=== PATIENT | male | born 1950 | race Caucasian/White ===

== ENCOUNTER 2020-04-05 17:48 | Inpatient (IN) | payer OTHER ==
[2020-04-05 20:01] VITALS: BMI 30.7
--- NOTE | 2020-04-05 20:29 | HP ---
CIWA Score Nausea/Vomitin-No Nausea/No Vomiting Muscle Tremors: 1-None Visible, but [place] Anxiety: 4-Mod. Anxious/Guarded Agitation: 4-Moderately Restless Paroxysmal Sweats: 4-Forehead w/Sweat Beads Orientation: 1-Uncertain about Date Tacttile Disturbances: 0-None Auditory Disturbances: 0-None Visual Disturbances: 2-Mild Sensitivity (to light) Headache: 0-None Present CIWA-Ar Total Score: 16 - Admission Criteria OASAS Guidelines: Admission for Medically Managed Detox: Requires at least one of the followin. CIWA greater than 12 2. Seizures within the past 24 hours 3. Delirium tremens within the past 24 hours 4. Hallucinations within the past 24 hours 5. Acute intervention needed for co occurring medical disorder 6. Acute intervention needed for co occurring psychiatric disorder 7. Severe withdrawal that cannot be handled at a lower level of care (continued vomiting, continued diarrhea, abnormal vital signs) requiring intravenous medication and/or fluids 8. Admission ROS [facility] Chief Complaint: c/o onset of withdrawal sx's. seeking detox Allergies/Adverse Reactions: Allergies Allergy/AdvReac Type Severity Reaction Status Date / Time No Known Allergies Allergy Verified 04/05/20 20:24 History of Present Illness: 69 y.o.MALE WITH HX/O ALCOHOLISM AND OPIOID DEPENDENCE HERE FOR DETOX. CLIENT IS SELF REFERRED. KNOWN TO [facility] MANY YEARS AGO. HE IS ON MMTP AT [facility] W/ REPORTED DOSE OF 60 MG DAILY. REPORTS LDM TODAY. HE REPORTS DAILY ALCOHOL INTAKE. LAST INTAKE APPROX 9 AM. PRESENTS WITH C/O OF WITHDRAWAL SX'S. DENIES RADIOLOGY ORDERLY DRINKING. DENIES HX/O BLACK OUTS AND SEIZURES. REPORTS LONGEST CLEAN TIME 7 YEARS RELAPSING 2000. DENIES ANY CLEAN TIME IN THE PAST 12 MONTHS HE ALSO REPORTS HEROIN USE OF 2 BAGS DAILY. RECENTLY HAD METHADONE DOSE INCREASED AT [facility]. LIVES ALONE, UNEMPLOYED, DENIES LEGALS Exam Limitations: No Limitations - Ebola screening Have you traveled outside of the country in the last 21 days: No Have you had contact with anyone from an Ebola affected area: No Have you been sick,other than usual withdrawal symptoms: No Do you have a fever: No - Review of Systems Constitutional: Night Sweats, Changes in sleep EENT: reports: Dental Problems (MISSING TEETH) Respiratory: reports: Other (HX/O +PPD) Cardiac: reports: No Symptoms Reported GI: reports: Constipated : reports: No Symptoms Reported Musculoskeletal: reports: Back Pain, Joint Pain (R KNEE) Integumentary: reports: No Symptoms Reported Neuro: reports: Tremors Endocrine: reports: No Symptoms Reported Hematology: reports: Easy Bruising Psychiatric: reports: Orientated x3, Anxious, other (STRESS D/O) Other Systems: Reviewed and Negative Patient History - Patient Medical History Hx Anemia: No Hx Asthma: No Hx Chronic Obstructive Pulmonary Disease (COPD): No Hx Cancer: No Hx Cardiac Disorders: No Hx Congestive Heart Failure: No Hx Hypertension: No Hx Hypercholesterolemia: Yes Hx Pacemaker: No HX Cerebrovascular Accident: No Hx Seizures: No Hx Dementia: No Hx Diabetes: No Hx Gastrointestinal Disorders: No Hx Liver Disease: No Hx Genitourinary Disorders: No Hx Sexually Transmitted Disorders: No Hx Renal Disease (ESRD): No Hx Thyroid Disease: No Hx Human Immunodeficiency Virus (HIV): Yes (ON MEDS) Hx Hepatitis C: No Hx Depression: Yes Hx Suicide Attempt: No Hx Bipolar Disorder: No Hx Schizophrenia: No Other Medical History: ANXIETY, STRESS D/O HX/O +PPD TX'ED - Patient Surgical History Past Surgical History: No - PPD History Previous Implant?: Yes Documented Results: Positive w/o proof Implanted On Prior [facility] Admission?: No PPD to be Administered?: No - Smoking Cessation Smoking history: Current every day smoker Have you smoked in the past 12 months: Yes Aproximately how many cigarettes per day: 10 Cigars Per Day: 0 Hx Chewing Tobacco Use: No Initiated information on smoking cessation: Yes 'Breaking Loose' booklet given: 04/05/20 - Substance & Tx. History Hx Alcohol Use: Yes Hx Substance Use: Yes Substance Use Type: Alcohol, Heroin, Prescribed (MTD) Hx Substance Use Treatment: Yes ([facility]) - Substances abused Alcohol Other (specify): LIQUOR/ VODKA Substance route: Oral Frequency: Daily Amount used: 1/2 PINT Age of first use: 66 Date of last use: 04/05/20 Admission Physical Exam BHS - Vital Signs Vital Signs: Vital Signs - 24 hr 04/05/20 19:59 Temperature 97.9 F Pulse Rate 61 Respiratory 18 Rate Blood Pressure 133/75 - Physical General Appearance: Yes: Mild Distress, Anxious HEENTM: Yes: EOMI, Normocephalic, Normal Voice, CINTIA, Pharynx Normal, Other (EDENTULOUS) Respiratory: Yes: Chest Non-Tender, Lungs Clear, Normal Breath Sounds, No Respiratory Distress, No Accessory Muscle Use Neck: Yes: No masses,lesions,Nodules, Supple, Trachea in good position Breast: Yes: Breasts Symetrical Cardiology: Yes: Regular Rhythm, Regular Rate, S1, S2 Abdominal: Yes: Normal Bowel Sounds, Non Tender, Soft, Protuberent Genitourinary: Yes: Within Normal Limits Back: Yes: Normal Inspection Musculoskeletal: Yes: full range of Motion, Gait Steady Extremities: Yes: Normal Capillary Refill, Normal Range of Motion, Non-Tender Neurological: Yes: Alert, Motor Strength 5/5, Disoriented (TO DATE), Other - Diagnostic (1) Alcohol dependence with withdrawal, uncomplicated Current Visit: Yes Status: Acute (2) Methadone maintenance therapy patient Current Visit: Yes Status: Chronic (3) History of positive PPD Current Visit: Yes Status: Chronic (4) Cannabis dependence, uncomplicated Current Visit: Yes Status: Acute (5) HLD (hyperlipidemia) Current Visit: Yes Status: Chronic Qualifiers: Hyperlipidemia type: unspecified Qualified Code(s): E78.5 - Hyperlipidemia, unspecified (6) Psychiatric disorder Current Visit: Yes Status: Chronic (7) HIV (human immunodeficiency virus infection) Current Visit: Yes Status: Chronic Qualifiers: HIV symptom status: unspecified Qualified Code(s): B20 - Human immunodeficiency virus [HIV] disease Cleared for Admission S - Detox or Rehab [facility] Level of Care: Medically Managed Detox Regimen/Protocol: Ativan Claeared for Rehab Admission: No Breathalyzer - Breathalyzer Breathalyzer: 0 Urine Drug Screen - Test Device Lot number: [id number] Expiration date: 10/14/21 - Control Is test valid?: Yes - Results Drug screen NEGATIVE: No Urine drug screen results: THC-Marijuana, FEN-Fentanyl, MOP-Opiates, MTD- Methadone Inpatient Rehab Admission - Rehab Decision to Admit Inpatient rehab admission?: No
[2020-04-05] MEDS ORDERED: hydrOXYzine PAMOATE 25 MG CAPSULE (FP) PO PRN (20:40)
[2020-04-05] MEDS ORDERED: guaiFENesin 200 MG/10 ML 10 ML UNIT-DOSE CUPS PO PRN (20:40)
[2020-04-05] MEDS ORDERED: METHOCARBAMOL 500 MG TABLET PO PRN (20:40)
[2020-04-05] MEDS ORDERED: IBUPROFEN 400 MG TABLET (FP) PO PRN (20:40)
[2020-04-05] MEDS ORDERED: MAGNESIUM CITRATE 300 ML BOTTLE PO PRN (20:40)
[2020-04-05] MEDS ORDERED: MAG HYDROX/AL HYDROX/SIMETH 30 ML UNIT-DOSE CUP PO PRN (20:40)
[2020-04-05] MEDS ORDERED: MAGNESIUM HYDROX 2400MG/30ML ORAL SUSPENSION 30 ML CUP PO PRN (20:40)
[2020-04-05] MEDS ORDERED: NICOTINE POLACRILEX 2 MG GUM BUC PRN (20:40)
[2020-04-05] MEDS ORDERED: ONDANSETRON *ODT* 4 MG TABLET SL PRN (20:40)
[2020-04-05] MEDS ORDERED: BISMUTH SUBSALICYLATE 524 MG/30 ML UD PO PRN (20:40)
[2020-04-05] MEDS ORDERED: ACETAMINOPHEN 325 MG TABLET (FP) PO PRN ×2 (20:40)
[2020-04-05] MEDS ORDERED: P-EPHED 60MG/TRIPROLIDI 2.5MG TABLET PO PRN (20:40)
[2020-04-05] MEDS ORDERED: LORazepam 1 MG TABLET PO PRN (20:40)
[2020-04-05] MEDS ORDERED: DICYCLOMINE HCL 10 MG CAPSULE PO PRN (20:40)
[2020-04-05] MEDS ORDERED: MENTHOL/PHENOL 1 EACH UD MM PRN (20:40)
[2020-04-05] MEDS: THIAMINE HCL 100 MG TABLET (FP) PO SCH (22:10)
[2020-04-05] MEDS: LORazepam 2 MG TABLET PO SCH (22:10)
[2020-04-05] MEDS: MELATONIN 5 MG TABLETS PO SCH (22:11)
[2020-04-06] MEDS: LORazepam 2 MG TABLET PO SCH ×4 (05:59→22:38)
--- NOTE | 2020-04-06 10:14 | EKG ---
Test Reason : Blood Pressure : / mmHG Vent. Rate : 051 BPM Atrial Rate : 051 BPM P-R Int : 150 ms QRS Dur : 090 ms QT Int : 476 ms P-R-T Axes : 031 062 066 degrees QTc Int : 438 ms SINUS BRADYCARDIA NONSPECIFIC T WAVE ABNORMALITY ABNORMAL ECG NO PREVIOUS ECGS AVAILABLE Confirmed by MD Mary Alice, Vaughn ([id number]) on 04/06/2020 10:14:11 AM Referred By: Aakash Pereyra Confirmed By:Vaughn Wheat MD
--- NOTE | 2020-04-06 10:26 | CONSULT ---
[facility] Psychiatric Consult - Data Date of interview: 04/06/20 Admission source: Self-referred Identifying data: Mr Cowan is a 69 years old male, father of 2 daughters, unemployed receiving SSI, domiciled seeking detox treatment for alcohol and opioid Substance Abuse History: Reports history of alcohol and heroin use. Refer to addiction counselor's summary lelo raminad information Medical History: Significant for HIV, dyslipidemia, back and knee pain, history of treatment fr PPD+. Patient is on methadone 60 mg/day from [facility] MMTP. Smokes 10 cigarettes daily Psychiatric History: This is patient's admission to this facility. Patient is a poor historian. He reports that his first psychiatric contact occured years ago when he was diagnosed with depression by a psychiatrist at [facility] located on [address] He said that he was prescribed Klonopin 2 mg, Zoloft, Zyprexa and Ambien. Reports that he currently sees a psychiatrist at [facility] on [address] in [facility] and he is prescribed Klonopin 0.5 mg, Zoloft 100 mg/day and Ambien 10 mg/hs. [facility], [address] [place] [address] Ave [phone]. According to pharmacy staff, scripts for Zoloft 100 mg/day, Klonopin 0.5 mg/tid, Ambien 10 mg/hs and Trazadone 100 mg/hs were picked up on 04/05/20. Reports one previous psychiatric hospitalization at [facility] in early s for psychiatric issues related to intoxication. He claims that he was there for 21 days. Denies previous suicidal attempt. At present, denies expeiencing depressive symptoms, S/H ideations. However, reports sleeping poorly Physical/Sexual Abuse/Trauma History: Denies history of abuse as a child or DV relationship as an adult Mental Status Exam - Mental Status Exam Alert and Oriented to: Time, Place, Person Cognitive Function: Fair Patient Appearance: Well Groomed Mood: Hopeful, Euthymic Patient Behavior: Cooperative Voice Loudness: Normal Thought Process: Intact, Goal Oriented Thought Disorder: Not Present Hallucinations: Denies Suicidal Ideation: Denies Homicidal Ideation: Denies Insight/Judgement: Poor Sleep: Poorly Appetite: Poor Muscle strength/Tone: Normal Gait/Station: Normal Psychiatric Findings - Problem List (Holliday 1, 2,3) (1) MDD (major depressive disorder) Current Visit: Yes Status: Chronic (2) Substance-induced sleep disorder Current Visit: Yes Status: Acute (3) Alcohol dependence with withdrawal, uncomplicated Current Visit: Yes Status: Acute (4) Cannabis dependence, uncomplicated Current Visit: Yes Status: Acute (5) Opioid dependence on agonist therapy Current Visit: Yes Status: Chronic (6) Nicotine dependence Current Visit: Yes Status: Chronic (7) HIV (human immunodeficiency virus infection) Current Visit: Yes Status: Chronic Qualifiers: HIV symptom status: unspecified Qualified Code(s): B20 - Human immunodeficiency virus [HIV] disease (8) HLD (hyperlipidemia) Current Visit: Yes Status: Chronic Qualifiers: Hyperlipidemia type: unspecified Qualified Code(s): E78.5 - Hyperlipidemia, unspecified (9) History of positive PPD Current Visit: Yes Status: Resolved - Initial Treatment Plan Initial Treatment Plan: 1) Continue Zoloft 100 mg po daily, Trazadone 100 mg po HS. 2) Start Belsomra 10 mg po HS prn for insomnia. 3) Continue inpatient detoxofication
[2020-04-06] MEDS: NICOTINE 14 MG/24 HOURS TOPICAL PATCH TD SCH (10:49)
[2020-04-06] MEDS: PRENATAL VITAMINS W/ FOLIC ACID TABLET (FP) PO SCH (10:49)
[2020-04-06 10:52] LABS: HEMATOCRIT 38.5 % (35.4-49); HEMOGLOBIN 12.8 GM/dL (11.7-16.9); MCH 31.4 pg (25.7-33.7); MCHC 33.2 g/dl (32.0-35.9); MEAN CELL VOLUME 94.5 fl (80-96); MEAN PLT VOLUME 10.7 fl (7.5-11.1); PLATELET COUNT 128 K/MM3 (134-434); RBC 4.07 M/mm3 (4.00-5.60); RDW 13.9 % (11.9-15.9); WHITE BLOOD COUNT 4.8 K/mm3 (4.0-10.0)
[2020-04-06 11:00] LABS: POTASSIUM 4.3 mmol/L (3.5-5.1)
[2020-04-06 11:08] LABS: ALBUMIN 3.4 g/dl (3.4-5.0); BILIRUBIN,TOTAL 0.6 mg/dL (0.2-1); BLOOD UREA NITROGEN 24.8 mg/dL (7-18); CALCIUM 8.6 mg/dL (8.5-10.1); TOT PROT 6.8 g/dl (6.4-8.2)
--- NOTE | 2020-04-06 12:28 | PN ---
S CIWA - CIWA Score Nausea/Vomitin-No Nausea/No Vomiting Muscle Tremors: 3 Anxiety: 2 Agitation: 3 Paroxysmal Sweats: 2 Orientation: 0-Oriented Tacttile Disturbances: 0-None Auditory Disturbances: 0-None Visual Disturbances: 0-None Headache: 0-None Present CIWA-Ar Total Score: 10 S Progress Note (SOAP) Subjective: sweats shakes body aches tired Objective: 04/06/20 12:27 Vital Signs Temperature 96.0 F L 04/06/20 06:27 Pulse Rate 57 L 04/06/20 06:27 Respiratory Rate 16 04/06/20 06:27 Blood Pressure 115/73 04/06/20 06:27 O2 Sat by Pulse Oximetry (%) 97 04/06/20 06:27 Laboratory Tests 04/05/20 04/06/20 04/06/20 07:00 07:00 07:15 WBC 4.8 RBC 4.07 Hgb 12.8 Hct 38.5 MCV 94.5 MCH 31.4 MCHC 33.2 RDW 13.9 Plt Count 128 L MPV 10.7 Sodium 142 Potassium 4.3 Chloride 108 H Carbon Dioxide 28 Anion Gap 6 L BUN 24.8 H Creatinine 1.0 Est GFR (CKD-EPI)AfAm 88.61 Est GFR (CKD-EPI)NonAf 76.45 Random Glucose 136 H Calcium 8.6 Total Bilirubin 0.6 AST 27 ALT 39 Alkaline Phosphatase 117 Total Protein 6.8 Albumin 3.4 Syphilis Serology Non-reactive labs noted elevated BUN; will repeat lab aaox3 ambulating no acute distress Assessment: 04/06/20 12:28 withdrawals Plan: continue detox increase fluids repeat CMP
[2020-04-06] MEDS ORDERED: METHADONE HCL 10 MG TABLET PO ONE (13:24)
[2020-04-06] MEDS ORDERED: METHADONE 40 MG, METHADONE 20 MG PO ONE (13:45)
[2020-04-06] MEDS ORDERED: METHADONE HCL 10 MG TABLET ONE (14:00)
[2020-04-06] MEDS ORDERED: METHADONE HCL 40 MG DISPERSABLE TABLET ONE (14:00)
[2020-04-06] MEDS: SERTRALINE HCL 50 MG TABLET (FP) PO SCH (15:25)
[2020-04-06] MEDS ORDERED: SUVOREXANT 10 MG TABLET PO PRN (22:00)
[2020-04-06] MEDS: traZODone HCL 100 MG TABLET (FP) PO SCH (22:38)
[2020-04-06] MEDS: MELATONIN 5 MG TABLETS PO SCH (22:38)
[2020-04-06] MEDS: THIAMINE HCL 100 MG TABLET (FP) PO SCH (22:38)
[2020-04-07] MEDS ORDERED: METHADONE HCL 10 MG TABLET ONE (04:09)
[2020-04-07] MEDS ORDERED: METHADONE HCL 40 MG DISPERSABLE TABLET ONE (04:09)
[2020-04-07] MEDS: METHADONE 40 MG, METHADONE 20 MG PO SCH (05:55)
[2020-04-07] MEDS: LORazepam 1 MG TABLET PO SCH ×4 (05:56→22:23)
[2020-04-07] MEDS ORDERED: METHADONE HCL 40 MG DISPERSABLE TABLET PO SCH (06:00)
[2020-04-07 10:42] LABS: ALBUMIN 3.3 g/dl (3.4-5.0); BILIRUBIN,TOTAL 0.6 mg/dL (0.2-1); BLOOD UREA NITROGEN 18.4 mg/dL (7-18); CALCIUM 8.5 mg/dL (8.5-10.1); POTASSIUM 4.2 mmol/L (3.5-5.1); TOT PROT 6.9 g/dl (6.4-8.2)
[2020-04-07] MEDS: SERTRALINE HCL 50 MG TABLET (FP) PO SCH (11:40)
[2020-04-07] MEDS: NICOTINE 14 MG/24 HOURS TOPICAL PATCH TD SCH (11:40)
[2020-04-07] MEDS: PRENATAL VITAMINS W/ FOLIC ACID TABLET (FP) PO SCH (11:40)
--- NOTE | 2020-04-07 12:31 | PN ---
S CIWA - CIWA Score Nausea/Vomitin-No Nausea/No Vomiting Muscle Tremors: 2 Anxiety: 1-Mildly Anxious Agitation: 2 Paroxysmal Sweats: 2 Orientation: 0-Oriented Tacttile Disturbances: 0-None Auditory Disturbances: 0-None Visual Disturbances: 0-None Headache: 0-None Present CIWA-Ar Total Score: 7 BHS Progress Note (SOAP) Subjective: sweats irritable body aches Objective: 04/07/20 12:30 Vital Signs Temperature 96.8 F L 04/07/20 09:05 Pulse Rate 67 04/07/20 09:05 Respiratory Rate 20 04/07/20 09:05 Blood Pressure 106/65 04/07/20 09:05 O2 Sat by Pulse Oximetry (%) 97 04/07/20 09:05 Laboratory Tests 04/05/20 04/05/20 04/06/20 07:00 21:37 07:00 WBC RBC Hgb Hct MCV MCH MCHC RDW Plt Count MPV Sodium 142 Potassium 4.3 Chloride 108 H Carbon Dioxide 28 Anion Gap 6 L BUN 24.8 H Creatinine 1.0 Est GFR (CKD-EPI)AfAm 88.61 Est GFR (CKD-EPI)NonAf 76.45 Random Glucose 136 H Calcium 8.6 Total Bilirubin 0.6 AST 27 ALT 39 Alkaline Phosphatase 117 Total Protein 6.8 Albumin 3.4 Syphilis Serology Non-reactive COVID-19 (JAYE) Not detected 04/06/20 04/07/20 07:15 07:00 WBC 4.8 RBC 4.07 Hgb 12.8 Hct 38.5 MCV 94.5 MCH 31.4 MCHC 33.2 RDW 13.9 Plt Count 128 L MPV 10.7 Sodium 140 Potassium 4.2 Chloride 108 H Carbon Dioxide 29 Anion Gap 4 L BUN 18.4 H Creatinine 1.0 Est GFR (CKD-EPI)AfAm 88.61 Est GFR (CKD-EPI)NonAf 76.45 Random Glucose 126 H Calcium 8.5 Total Bilirubin 0.6 AST 18 ALT 35 Alkaline Phosphatase 130 H Total Protein 6.9 Albumin 3.3 L Syphilis Serology COVID-19 (JAYE) repeated labs show some improvement aaox3 ambulating no acute distress Assessment: 04/07/20 12:30 withdrawals Plan: continue detox increase fluids
[2020-04-07] MEDS: traZODone HCL 100 MG TABLET (FP) PO SCH (22:23)
[2020-04-07] MEDS: THIAMINE HCL 100 MG TABLET (FP) PO SCH (22:23)
[2020-04-07] MEDS: MELATONIN 5 MG TABLETS PO SCH (22:24)
[2020-04-08] MEDS ORDERED: LORazepam 0.5 MG TABLET PO PRN
[2020-04-08] MEDS ORDERED: METHADONE HCL 40 MG DISPERSABLE TABLET ONE (04:28)
[2020-04-08] MEDS ORDERED: METHADONE HCL 10 MG TABLET ONE (04:28)
[2020-04-08] MEDS: METHADONE 40 MG, METHADONE 20 MG PO SCH (05:41)
[2020-04-08] MEDS: LORazepam 0.5 MG TABLET PO SCH ×4 (05:41→22:21)
[2020-04-08] MEDS: NICOTINE 14 MG/24 HOURS TOPICAL PATCH TD SCH (09:00)
[2020-04-08] MEDS: SERTRALINE HCL 50 MG TABLET (FP) PO SCH (10:14)
[2020-04-08] MEDS: PRENATAL VITAMINS W/ FOLIC ACID TABLET (FP) PO SCH (10:14)
--- NOTE | 2020-04-08 13:15 | PN ---
S CIWA - CIWA Score Nausea/Vomitin-No Nausea/No Vomiting Muscle Tremors: 2 Anxiety: 1-Mildly Anxious Agitation: 1-Slight > Activity Paroxysmal Sweats: 2 Orientation: 0-Oriented Tacttile Disturbances: 0-None Auditory Disturbances: 0-None Visual Disturbances: 0-None Headache: 0-None Present CIWA-Ar Total Score: 6 BHS Progress Note (SOAP) Subjective: sweats feeling better Objective: 04/08/20 13:03 Vital Signs Temperature 96.9 F L 04/08/20 08:52 Pulse Rate 68 04/08/20 08:52 Respiratory Rate 16 04/08/20 08:52 Blood Pressure 110/61 04/08/20 08:52 O2 Sat by Pulse Oximetry (%) 95 04/08/20 05:29 aaox3 ambulating no acute distress Assessment: 04/08/20 13:04 withdrawals Plan: d/c in am
[2020-04-08] MEDS: traZODone HCL 100 MG TABLET (FP) PO SCH (22:21)
[2020-04-08] MEDS: THIAMINE HCL 100 MG TABLET (FP) PO SCH (22:21)
[2020-04-08] MEDS: MELATONIN 5 MG TABLETS PO SCH (22:22)
[2020-04-09] MEDS ORDERED: METHADONE HCL 10 MG TABLET ONE (03:37)
[2020-04-09] MEDS ORDERED: METHADONE HCL 40 MG DISPERSABLE TABLET ONE (03:37)
[2020-04-09] MEDS ORDERED: LORazepam 0.5 MG TABLET PO ONE (05:00)
[2020-04-09] MEDS: METHADONE 40 MG, METHADONE 20 MG PO SCH (06:50)
--- NOTE | 2020-04-09 09:16 | DS ---
[facility] Detox Discharge Summary Admission Date: 04/05/20 Discharge Date: 04/09/20 - History Present History: Alcohol Dependence, Cannabis Dependence, MMTP - Physical Exam Results Vital Signs: Vital Signs Temperature 98.4 F 04/09/20 05:48 Pulse Rate 54 L 04/09/20 05:48 Respiratory Rate 04/09/20 05:48 Blood Pressure 116/71 04/09/20 05:48 O2 Sat by Pulse Oximetry (%) 95 04/09/20 05:48 Pertinent Admission Physical Exam Findings: Vital Signs Temperature 98.4 F 04/09/20 05:48 Pulse Rate 54 L 04/09/20 05:48 Respiratory Rate 04/09/20 05:48 Blood Pressure 116/71 04/09/20 05:48 O2 Sat by Pulse Oximetry (%) 95 04/09/20 05:48 Laboratory Tests 04/05/20 04/05/20 04/06/20 07:00 21:37 07:00 WBC RBC Hgb Hct MCV MCH MCHC RDW Plt Count MPV Sodium 142 Potassium 4.3 Chloride 108 H Carbon Dioxide 28 Anion Gap 6 L BUN 24.8 H Creatinine 1.0 Est GFR (CKD-EPI)AfAm 88.61 Est GFR (CKD-EPI)NonAf 76.45 Random Glucose 136 H Calcium 8.6 Total Bilirubin 0.6 AST 27 ALT 39 Alkaline Phosphatase 117 Total Protein 6.8 Albumin 3.4 Syphilis Serology Non-reactive COVID-19 (JAYE) Not detected 04/06/20 04/07/20 07:15 07:00 WBC 4.8 RBC 4.07 Hgb 12.8 Hct 38.5 MCV 94.5 MCH 31.4 MCHC 33.2 RDW 13.9 Plt Count 128 L MPV 10.7 Sodium 140 Potassium 4.2 Chloride 108 H Carbon Dioxide 29 Anion Gap 4 L BUN 18.4 H Creatinine 1.0 Est GFR (CKD-EPI)AfAm 88.61 Est GFR (CKD-EPI)NonAf 76.45 Random Glucose 126 H Calcium 8.5 Total Bilirubin 0.6 AST 18 ALT 35 Alkaline Phosphatase 130 H Total Protein 6.9 Albumin 3.3 L Syphilis Serology COVID-19 (JAYE) labs noted ambulating no acute distress lungs CTA - Treatment Hospital Course: Detox Protocol Followed, Detoxed Safely, Responded well, Discharged Condition Good, Rehab Referral Accepted - Medication Discharge Medications: Ambulatory Orders NK [No Known Home Medication] 04/05/20 - Diagnosis (1) Alcohol dependence with withdrawal, uncomplicated Current Visit: Yes Status: Chronic (2) Cannabis dependence, uncomplicated Current Visit: Yes Status: Chronic (3) Substance-induced sleep disorder Current Visit: Yes Status: Acute (4) HIV (human immunodeficiency virus infection) Current Visit: Yes Status: Chronic Qualifiers: HIV symptom status: asymptomatic Qualified Code(s): Z21 - Asymptomatic human immunodeficiency virus [HIV] infection status (5) HLD (hyperlipidemia) Current Visit: Yes Status: Chronic Qualifiers: Hyperlipidemia type: unspecified Qualified Code(s): E78.5 - Hyperlipidemia, unspecified (6) MDD (major depressive disorder) Current Visit: Yes Status: Chronic (7) Methadone maintenance therapy patient Current Visit: Yes Status: Chronic (8) Nicotine dependence Current Visit: Yes Status: Chronic Qualifiers: Nicotine product type: cigarettes Substance use status: uncomplicated Qualified Code(s): F17.210 - Nicotine dependence, cigarettes, uncomplicated (9) Opioid dependence on agonist therapy Current Visit: Yes Status: Chronic (10) Psychiatric disorder Current Visit: Yes Status: Chronic (11) History of positive PPD Current Visit: Yes Status: Resolved - AMA Did Patient Leave Against Medical Advice: No
[2020-04-09 09:38] VITALS: BP 109/64; PULSE 72; TEMP 97.7
[2020-04-09] MEDS: NICOTINE 14 MG/24 HOURS TOPICAL PATCH TD SCH (10:26)
[2020-04-09] MEDS: PRENATAL VITAMINS W/ FOLIC ACID TABLET (FP) PO SCH (10:26)
[2020-04-09] MEDS: SERTRALINE HCL 50 MG TABLET (FP) PO SCH (10:26)
== END 2020-04-09 10:59 | disposition home or self-care (01) | DRG 897 ==
LOC: YASAS 17:48 → Y6N 21:24
PROVIDERS: ADMIT Allergy & Immunology; ATTEND Allergy & Immunology
PROC: HZ2ZZZZ Detoxification Services for Substance Abuse Treatment (ICD-10-PCS; principal; 2020-04-05)
DX: F10.230 Alcohol dependence with withdrawal, uncomplicated (principal); F11.20 Opioid dependence, uncomplicated; F19.282 Other psychoactive substance dependence with psychoactive substance-induced sleep disorder; F12.20 Cannabis dependence, uncomplicated; F17.210 Nicotine dependence, cigarettes, uncomplicated; F32.9 Major depressive disorder, single episode, unspecified; Z21 Asymptomatic human immunodeficiency virus [HIV] infection status; E78.5 Hyperlipidemia, unspecified; R76.11 Nonspecific reaction to tuberculin skin test without active tuberculosis
CPT/HCPCS: 36415; 80053; 85027; 86780; 93005; 93010; U0003

== ENCOUNTER 2021-02-18 11:21 | Inpatient (IN) | payer OTHER ==
[2021-02-18 11:59] VITALS: BMI 28.2
[2021-02-18] MEDS ORDERED: MAGNESIUM CITRATE 300 ML BOTTLE PO PRN (17:54)
[2021-02-18] MEDS ORDERED: P-EPHED 60MG/TRIPROLIDI 2.5MG TABLET PO PRN (17:54)
[2021-02-18] MEDS ORDERED: ACETAMINOPHEN 325 MG TABLET (FP) PO PRN (17:54)
[2021-02-18] MEDS ORDERED: MAG HYDROX/AL HYDROX/SIMETH 30 ML UNIT-DOSE CUP PO PRN (17:54)
[2021-02-18] MEDS ORDERED: guaiFENesin 200 MG/10 ML 10 ML UNIT-DOSE CUPS PO PRN (17:54)
[2021-02-18] MEDS ORDERED: LOPERAMIDE HCL 2 MG CAPSULE PO PRN (17:54)
[2021-02-18] MEDS: hydrOXYzine PAMOATE 25 MG CAPSULE (FP) PO SCH ×2 (20:05→21:33)
[2021-02-18] MEDS: THIAMINE HCL 100 MG TABLET (FP) PO SCH (21:33)
[2021-02-18] MEDS: MELATONIN 5 MG TABLETS PO SCH (21:33)
[2021-02-19] MEDS: hydrOXYzine PAMOATE 25 MG CAPSULE (FP) PO SCH ×5 (06:50→21:35)
[2021-02-19] MEDS: NICOTINE 7 MG/24 HOURS TOPICAL PATCH TD SCH (10:15)
[2021-02-19] MEDS: PRENATAL VITAMINS W/ FOLIC ACID TABLET (FP) PO SCH (10:15)
[2021-02-19] MEDS ORDERED: methaDONE HCL 40 MG DISPERSABLE TABLET PO SCH (10:45)
[2021-02-19] MEDS ORDERED: methaDONE HCL 40 MG DISPERSABLE TABLET ONE (10:58)
[2021-02-19] MEDS ORDERED: methaDONE HCL 10 MG TABLET ONE (10:58)
[2021-02-19] MEDS: methaDONE 40 MG, methaDONE 20 MG PO SCH (10:59)
[2021-02-19] MEDS: MELATONIN 5 MG TABLETS PO SCH (21:35)
[2021-02-19] MEDS: THIAMINE HCL 100 MG TABLET (FP) PO SCH (21:35)
[2021-02-20] MEDS ORDERED: methaDONE HCL 40 MG DISPERSABLE TABLET ONE (03:21)
[2021-02-20] MEDS ORDERED: methaDONE HCL 10 MG TABLET ONE (03:22)
[2021-02-20] MEDS: methaDONE 40 MG, methaDONE 20 MG PO SCH (06:42)
[2021-02-20] MEDS: hydrOXYzine PAMOATE 25 MG CAPSULE (FP) PO SCH ×5 (06:42→21:14)
[2021-02-20] MEDS: PRENATAL VITAMINS W/ FOLIC ACID TABLET (FP) PO SCH (09:38)
[2021-02-20] MEDS: NICOTINE 7 MG/24 HOURS TOPICAL PATCH TD SCH (09:39)
[2021-02-20 11:58] LABS: HEMATOCRIT 39.8 % (35.4-49); HEMOGLOBIN 13.5 GM/dL (11.7-16.9); MCH 31.9 pg (25.7-33.7); MCHC 33.8 g/dl (32.0-35.9); MEAN CELL VOLUME 94.1 fl (80-96); MEAN PLT VOLUME 10.8 fl (7.5-11.1); PLATELET COUNT 153 10^3/uL (134-434); RBC 4.23 M/mm3 (4.00-5.60); RDW 13.5 % (11.9-15.9); WHITE BLOOD COUNT 5.4 K/mm3 (4.0-10.0)
[2021-02-20 12:25] LABS: CALCIUM 8.3 mg/dL (8.5-10.1)
[2021-02-20 12:26] LABS: ALBUMIN 3.6 g/dl (3.4-5.0)
[2021-02-20 12:30] LABS: BILIRUBIN,TOTAL 0.6 mg/dL (0.2-1); TOT PROT 7.1 g/dl (6.4-8.2)
[2021-02-20] MEDS: MELATONIN 5 MG TABLETS PO SCH (21:14)
[2021-02-20] MEDS: THIAMINE HCL 100 MG TABLET (FP) PO SCH (21:15)
[2021-02-21] MEDS ORDERED: methaDONE HCL 10 MG TABLET ONE (03:09)
[2021-02-21] MEDS ORDERED: methaDONE HCL 40 MG DISPERSABLE TABLET ONE (03:09)
[2021-02-21] MEDS: methaDONE 40 MG, methaDONE 20 MG PO SCH (06:44)
[2021-02-21] MEDS: hydrOXYzine PAMOATE 25 MG CAPSULE (FP) PO SCH ×5 (06:44→21:01)
[2021-02-21] MEDS: NICOTINE 7 MG/24 HOURS TOPICAL PATCH TD SCH (10:17)
[2021-02-21] MEDS: PRENATAL VITAMINS W/ FOLIC ACID TABLET (FP) PO SCH (10:17)
[2021-02-21] MEDS ORDERED: NICOTINE POLACRILEX 2 MG GUM BUC PRN (10:40)
[2021-02-21] MEDS: THIAMINE HCL 100 MG TABLET (FP) PO SCH (21:02)
[2021-02-21] MEDS: MELATONIN 5 MG TABLETS PO SCH (21:02)
[2021-02-22] MEDS ORDERED: methaDONE HCL 40 MG DISPERSABLE TABLET ONE (02:46)
[2021-02-22] MEDS ORDERED: methaDONE HCL 10 MG TABLET ONE (02:46)
[2021-02-22] MEDS: methaDONE 40 MG, methaDONE 20 MG PO SCH (06:26)
[2021-02-22] MEDS: hydrOXYzine PAMOATE 25 MG CAPSULE (FP) PO SCH ×5 (06:26→21:10)
[2021-02-22] MEDS: NICOTINE 14 MG/24 HOURS TOPICAL PATCH TD SCH (09:53)
[2021-02-22] MEDS: PRENATAL VITAMINS W/ FOLIC ACID TABLET (FP) PO SCH (09:53)
[2021-02-22] MEDS: MELATONIN 5 MG TABLETS PO SCH (21:10)
[2021-02-22] MEDS: THIAMINE HCL 100 MG TABLET (FP) PO SCH (21:10)
[2021-02-23] MEDS ORDERED: methaDONE HCL 40 MG DISPERSABLE TABLET ONE (03:30)
[2021-02-23] MEDS ORDERED: methaDONE HCL 10 MG TABLET ONE (03:31)
[2021-02-23] MEDS: hydrOXYzine PAMOATE 25 MG CAPSULE (FP) PO SCH ×5 (06:32→21:05)
[2021-02-23] MEDS: methaDONE 40 MG, methaDONE 20 MG PO SCH (06:32)
[2021-02-23] MEDS: NICOTINE 10 MG CARTRIDGE (INHALER) IH PRN (07:36)
[2021-02-23] MEDS: PRENATAL VITAMINS W/ FOLIC ACID TABLET (FP) PO SCH (10:42)
[2021-02-23] MEDS: NICOTINE 14 MG/24 HOURS TOPICAL PATCH TD SCH (10:42)
[2021-02-23] MEDS: IBUPROFEN 400 MG TABLET (FP) PO PRN (21:05)
[2021-02-23] MEDS: MELATONIN 5 MG TABLETS PO SCH (21:05)
[2021-02-23] MEDS: THIAMINE HCL 100 MG TABLET (FP) PO SCH (21:05)
[2021-02-24] MEDS ORDERED: methaDONE HCL 40 MG DISPERSABLE TABLET ONE (04:16)
[2021-02-24] MEDS ORDERED: methaDONE HCL 10 MG TABLET ONE (04:16)
[2021-02-24] MEDS: hydrOXYzine PAMOATE 25 MG CAPSULE (FP) PO SCH ×5 (06:22→21:27)
[2021-02-24] MEDS: methaDONE 40 MG, methaDONE 20 MG PO SCH (06:22)
[2021-02-24] MEDS: PRENATAL VITAMINS W/ FOLIC ACID TABLET (FP) PO SCH (10:22)
[2021-02-24] MEDS: NICOTINE 14 MG/24 HOURS TOPICAL PATCH TD SCH (10:23)
[2021-02-24] MEDS: NICOTINE 10 MG CARTRIDGE (INHALER) IH PRN (10:24)
[2021-02-24] MEDS: MAGNESIUM HYDROX 2400MG/30ML ORAL SUSPENSION 30 ML CUP PO PRN (10:25)
[2021-02-24] MEDS: MELATONIN 5 MG TABLETS PO SCH (21:27)
[2021-02-24] MEDS: THIAMINE HCL 100 MG TABLET (FP) PO SCH (21:27)
[2021-02-25] MEDS ORDERED: methaDONE HCL 40 MG DISPERSABLE TABLET ONE (03:07)
[2021-02-25] MEDS ORDERED: methaDONE HCL 10 MG TABLET ONE (03:08)
[2021-02-25] MEDS: hydrOXYzine PAMOATE 25 MG CAPSULE (FP) PO SCH ×5 (06:25→21:42)
[2021-02-25] MEDS: methaDONE 40 MG, methaDONE 20 MG PO SCH (06:25)
[2021-02-25] MEDS: PRENATAL VITAMINS W/ FOLIC ACID TABLET (FP) PO SCH (09:59)
[2021-02-25] MEDS: NICOTINE 14 MG/24 HOURS TOPICAL PATCH TD SCH (10:00)
[2021-02-25] MEDS: THIAMINE HCL 100 MG TABLET (FP) PO SCH (21:42)
[2021-02-25] MEDS: MELATONIN 5 MG TABLETS PO SCH (21:43)
[2021-02-26] MEDS ORDERED: methaDONE HCL 10 MG TABLET ONE (03:13)
[2021-02-26] MEDS ORDERED: methaDONE HCL 40 MG DISPERSABLE TABLET ONE (03:13)
[2021-02-26] MEDS: methaDONE 40 MG, methaDONE 20 MG PO SCH (06:36)
[2021-02-26] MEDS: hydrOXYzine PAMOATE 25 MG CAPSULE (FP) PO SCH ×5 (06:36→21:14)
[2021-02-26] MEDS: NICOTINE 10 MG CARTRIDGE (INHALER) IH PRN (09:50)
[2021-02-26] MEDS: NICOTINE 14 MG/24 HOURS TOPICAL PATCH TD SCH (09:50)
[2021-02-26] MEDS: PRENATAL VITAMINS W/ FOLIC ACID TABLET (FP) PO SCH (09:50)
[2021-02-26] MEDS: THIAMINE HCL 100 MG TABLET (FP) PO SCH (21:13)
[2021-02-26] MEDS: MELATONIN 5 MG TABLETS PO SCH (21:13)
[2021-02-27] MEDS ORDERED: methaDONE HCL 40 MG DISPERSABLE TABLET ONE (03:11)
[2021-02-27] MEDS ORDERED: methaDONE HCL 10 MG TABLET ONE (03:11)
[2021-02-27] MEDS: methaDONE 40 MG, methaDONE 20 MG PO SCH (06:27)
[2021-02-27] MEDS: hydrOXYzine PAMOATE 25 MG CAPSULE (FP) PO SCH ×5 (06:28→21:26)
[2021-02-27] MEDS: PRENATAL VITAMINS W/ FOLIC ACID TABLET (FP) PO SCH (09:06)
[2021-02-27] MEDS: NICOTINE 14 MG/24 HOURS TOPICAL PATCH TD SCH (09:07)
[2021-02-27] MEDS: NICOTINE 10 MG CARTRIDGE (INHALER) IH PRN (13:04)
[2021-02-27] MEDS: MELATONIN 5 MG TABLETS PO SCH (21:26)
[2021-02-27] MEDS: THIAMINE HCL 100 MG TABLET (FP) PO SCH (21:26)
[2021-02-28] MEDS ORDERED: methaDONE HCL 40 MG DISPERSABLE TABLET ONE (03:13)
[2021-02-28] MEDS ORDERED: methaDONE HCL 10 MG TABLET ONE (03:13)
[2021-02-28] MEDS: methaDONE 40 MG, methaDONE 20 MG PO SCH (06:37)
[2021-02-28] MEDS: hydrOXYzine PAMOATE 25 MG CAPSULE (FP) PO SCH ×5 (06:37→21:12)
[2021-02-28] MEDS: PRENATAL VITAMINS W/ FOLIC ACID TABLET (FP) PO SCH (10:14)
[2021-02-28] MEDS: NICOTINE 14 MG/24 HOURS TOPICAL PATCH TD SCH (10:14)
[2021-02-28] MEDS: NICOTINE 10 MG CARTRIDGE (INHALER) IH PRN (10:15)
[2021-02-28] MEDS: THIAMINE HCL 100 MG TABLET (FP) PO SCH (21:12)
[2021-02-28] MEDS: MELATONIN 5 MG TABLETS PO SCH (21:12)
[2021-03-01] MEDS ORDERED: methaDONE HCL 10 MG TABLET ONE (03:14)
[2021-03-01] MEDS ORDERED: methaDONE HCL 40 MG DISPERSABLE TABLET ONE (03:14)
[2021-03-01] MEDS: methaDONE 40 MG, methaDONE 20 MG PO SCH (06:41)
[2021-03-01] MEDS: hydrOXYzine PAMOATE 25 MG CAPSULE (FP) PO SCH ×5 (06:41→21:12)
[2021-03-01] MEDS: PRENATAL VITAMINS W/ FOLIC ACID TABLET (FP) PO SCH (10:26)
[2021-03-01] MEDS: NICOTINE 14 MG/24 HOURS TOPICAL PATCH TD SCH (10:26)
[2021-03-01] MEDS: NICOTINE 10 MG CARTRIDGE (INHALER) IH PRN ×2 (11:01→21:33)
[2021-03-01] MEDS: MELATONIN 5 MG TABLETS PO SCH (21:12)
[2021-03-01] MEDS: THIAMINE HCL 100 MG TABLET (FP) PO SCH (21:12)
[2021-03-02] MEDS ORDERED: methaDONE HCL 40 MG DISPERSABLE TABLET ONE (03:11)
[2021-03-02] MEDS ORDERED: methaDONE HCL 10 MG TABLET ONE (03:11)
[2021-03-02] MEDS: methaDONE 40 MG, methaDONE 20 MG PO SCH (06:30)
[2021-03-02] MEDS: hydrOXYzine PAMOATE 25 MG CAPSULE (FP) PO SCH ×5 (06:31→21:37)
[2021-03-02] MEDS: NICOTINE 10 MG CARTRIDGE (INHALER) IH PRN ×2 (09:07→21:38)
[2021-03-02] MEDS: NICOTINE 14 MG/24 HOURS TOPICAL PATCH TD SCH (09:52)
[2021-03-02] MEDS: PRENATAL VITAMINS W/ FOLIC ACID TABLET (FP) PO SCH (09:52)
[2021-03-02] MEDS: MELATONIN 5 MG TABLETS PO SCH (21:37)
[2021-03-02] MEDS: THIAMINE HCL 100 MG TABLET (FP) PO SCH (21:37)
[2021-03-02] MEDS: IBUPROFEN 400 MG TABLET (FP) PO PRN (21:38)
[2021-03-03] MEDS ORDERED: methaDONE HCL 40 MG DISPERSABLE TABLET ONE (03:04)
[2021-03-03] MEDS ORDERED: methaDONE HCL 10 MG TABLET ONE (03:05)
[2021-03-03] MEDS: methaDONE 40 MG, methaDONE 20 MG PO SCH (06:10)
[2021-03-03] MEDS: hydrOXYzine PAMOATE 25 MG CAPSULE (FP) PO SCH ×5 (06:10→21:16)
[2021-03-03] MEDS: PRENATAL VITAMINS W/ FOLIC ACID TABLET (FP) PO SCH (10:16)
[2021-03-03] MEDS: NICOTINE 14 MG/24 HOURS TOPICAL PATCH TD SCH (10:17)
[2021-03-03] MEDS: NICOTINE 10 MG CARTRIDGE (INHALER) IH PRN ×2 (10:18→21:17)
[2021-03-03] MEDS: MAGNESIUM HYDROX 2400MG/30ML ORAL SUSPENSION 30 ML CUP PO PRN (10:19)
[2021-03-03] MEDS: THIAMINE HCL 100 MG TABLET (FP) PO SCH (21:16)
[2021-03-03] MEDS: MELATONIN 5 MG TABLETS PO SCH (21:16)
[2021-03-04] MEDS ORDERED: methaDONE HCL 10 MG TABLET ONE (03:10)
[2021-03-04] MEDS ORDERED: methaDONE HCL 40 MG DISPERSABLE TABLET ONE (03:10)
[2021-03-04] MEDS: methaDONE 40 MG, methaDONE 20 MG PO SCH (06:57)
[2021-03-04] MEDS: hydrOXYzine PAMOATE 25 MG CAPSULE (FP) PO SCH ×5 (06:57→21:28)
[2021-03-04] MEDS: PRENATAL VITAMINS W/ FOLIC ACID TABLET (FP) PO SCH (10:08)
[2021-03-04] MEDS: NICOTINE 14 MG/24 HOURS TOPICAL PATCH TD SCH (10:08)
[2021-03-04] MEDS: NICOTINE 10 MG CARTRIDGE (INHALER) IH PRN (10:09)
[2021-03-04] MEDS: MELATONIN 5 MG TABLETS PO SCH (21:28)
[2021-03-04] MEDS: THIAMINE HCL 100 MG TABLET (FP) PO SCH (21:28)
[2021-03-05] MEDS ORDERED: methaDONE HCL 40 MG DISPERSABLE TABLET ONE (04:20)
[2021-03-05] MEDS ORDERED: methaDONE HCL 10 MG TABLET ONE (04:20)
[2021-03-05] MEDS: hydrOXYzine PAMOATE 25 MG CAPSULE (FP) PO SCH ×5 (07:06→22:01)
[2021-03-05] MEDS: methaDONE 40 MG, methaDONE 20 MG PO SCH (07:06)
[2021-03-05] MEDS: NICOTINE 10 MG CARTRIDGE (INHALER) IH PRN ×3 (07:09→14:08)
[2021-03-05] MEDS: NICOTINE 14 MG/24 HOURS TOPICAL PATCH TD SCH (10:25)
[2021-03-05] MEDS: PRENATAL VITAMINS W/ FOLIC ACID TABLET (FP) PO SCH (10:25)
[2021-03-05] MEDS: MELATONIN 5 MG TABLETS PO SCH (22:01)
[2021-03-05] MEDS: THIAMINE HCL 100 MG TABLET (FP) PO SCH (22:01)
[2021-03-06] MEDS ORDERED: methaDONE HCL 10 MG TABLET ONE (05:23)
[2021-03-06] MEDS ORDERED: methaDONE HCL 40 MG DISPERSABLE TABLET ONE (05:23)
[2021-03-06] MEDS: methaDONE 40 MG, methaDONE 20 MG PO SCH (07:10)
[2021-03-06] MEDS: hydrOXYzine PAMOATE 25 MG CAPSULE (FP) PO SCH ×5 (07:10→21:41)
[2021-03-06] MEDS: NICOTINE 14 MG/24 HOURS TOPICAL PATCH TD SCH (10:14)
[2021-03-06] MEDS: PRENATAL VITAMINS W/ FOLIC ACID TABLET (FP) PO SCH (10:14)
[2021-03-06] MEDS: NICOTINE 10 MG CARTRIDGE (INHALER) IH PRN ×2 (14:05→21:42)
[2021-03-06] MEDS: MELATONIN 5 MG TABLETS PO SCH (21:41)
[2021-03-06] MEDS: THIAMINE HCL 100 MG TABLET (FP) PO SCH (21:41)
[2021-03-07] MEDS ORDERED: methaDONE HCL 40 MG DISPERSABLE TABLET ONE (03:27)
[2021-03-07] MEDS ORDERED: methaDONE HCL 10 MG TABLET ONE (03:27)
[2021-03-07] MEDS: hydrOXYzine PAMOATE 25 MG CAPSULE (FP) PO SCH ×5 (06:50→21:08)
[2021-03-07] MEDS: methaDONE 40 MG, methaDONE 20 MG PO SCH (06:50)
[2021-03-07] MEDS: NICOTINE 14 MG/24 HOURS TOPICAL PATCH TD SCH (10:37)
[2021-03-07] MEDS: PRENATAL VITAMINS W/ FOLIC ACID TABLET (FP) PO SCH (10:37)
[2021-03-07] MEDS: MELATONIN 5 MG TABLETS PO SCH (21:06)
[2021-03-07] MEDS: THIAMINE HCL 100 MG TABLET (FP) PO SCH (21:06)
[2021-03-08] MEDS ORDERED: methaDONE HCL 40 MG DISPERSABLE TABLET ONE (03:08)
[2021-03-08] MEDS ORDERED: methaDONE HCL 10 MG TABLET ONE (03:09)
[2021-03-08] MEDS: methaDONE 40 MG, methaDONE 20 MG PO SCH (06:29)
[2021-03-08] MEDS: hydrOXYzine PAMOATE 25 MG CAPSULE (FP) PO SCH ×5 (06:29→21:24)
[2021-03-08] MEDS: NICOTINE 10 MG CARTRIDGE (INHALER) IH PRN (08:58)
[2021-03-08] MEDS: PRENATAL VITAMINS W/ FOLIC ACID TABLET (FP) PO SCH (10:38)
[2021-03-08] MEDS: NICOTINE 14 MG/24 HOURS TOPICAL PATCH TD SCH (10:38)
[2021-03-08] MEDS: MELATONIN 5 MG TABLETS PO SCH (21:24)
[2021-03-08] MEDS: THIAMINE HCL 100 MG TABLET (FP) PO SCH (21:24)
[2021-03-09] MEDS ORDERED: methaDONE HCL 10 MG TABLET ONE (03:15)
[2021-03-09] MEDS ORDERED: methaDONE HCL 40 MG DISPERSABLE TABLET ONE (03:15)
[2021-03-09] MEDS: hydrOXYzine PAMOATE 25 MG CAPSULE (FP) PO SCH ×5 (06:16→21:14)
[2021-03-09] MEDS: methaDONE 40 MG, methaDONE 20 MG PO SCH (06:16)
[2021-03-09] MEDS: NICOTINE 14 MG/24 HOURS TOPICAL PATCH TD SCH (09:52)
[2021-03-09] MEDS: PRENATAL VITAMINS W/ FOLIC ACID TABLET (FP) PO SCH (09:52)
[2021-03-09] MEDS: NICOTINE 10 MG CARTRIDGE (INHALER) IH PRN (09:53)
[2021-03-09] MEDS: THIAMINE HCL 100 MG TABLET (FP) PO SCH (21:14)
[2021-03-09] MEDS: MELATONIN 5 MG TABLETS PO SCH (21:14)
[2021-03-10] MEDS ORDERED: methaDONE HCL 40 MG DISPERSABLE TABLET ONE (02:56)
[2021-03-10] MEDS ORDERED: methaDONE HCL 10 MG TABLET ONE (02:57)
[2021-03-10] MEDS: hydrOXYzine PAMOATE 25 MG CAPSULE (FP) PO SCH ×5 (06:23→21:37)
[2021-03-10] MEDS: methaDONE 40 MG, methaDONE 20 MG PO SCH (06:23)
[2021-03-10] MEDS: PRENATAL VITAMINS W/ FOLIC ACID TABLET (FP) PO SCH (10:08)
[2021-03-10] MEDS: NICOTINE 14 MG/24 HOURS TOPICAL PATCH TD SCH (10:08)
[2021-03-10] MEDS: NICOTINE 10 MG CARTRIDGE (INHALER) IH PRN ×2 (10:09→21:37)
[2021-03-10] MEDS: MAGNESIUM HYDROX 2400MG/30ML ORAL SUSPENSION 30 ML CUP PO PRN (10:09)
[2021-03-10] MEDS: MELATONIN 5 MG TABLETS PO SCH (21:36)
[2021-03-10] MEDS: THIAMINE HCL 100 MG TABLET (FP) PO SCH (21:54)
[2021-03-11] MEDS ORDERED: methaDONE HCL 40 MG DISPERSABLE TABLET ONE (03:15)
[2021-03-11] MEDS ORDERED: methaDONE HCL 10 MG TABLET ONE (03:15)
[2021-03-11] MEDS: methaDONE 40 MG, methaDONE 20 MG PO SCH (06:10)
[2021-03-11] MEDS: hydrOXYzine PAMOATE 25 MG CAPSULE (FP) PO SCH (06:10)
[2021-03-11 07:03] VITALS: BP 153/79; PULSE 62; TEMP 96.8
== END 2021-03-11 09:05 | disposition home or self-care (01) | DRG 895 ==
LOC: YASAS 11:21 → Y3W 17:44
PROVIDERS: ADMIT Allergy & Immunology; ATTEND Allergy & Immunology
PROC: HZ42ZZZ Group Counseling for Substance Abuse Treatment, Cognitive-Behavioral (ICD-10-PCS; principal; 2021-02-18)
DX: F10.20 Alcohol dependence, uncomplicated (principal); F11.20 Opioid dependence, uncomplicated; F12.20 Cannabis dependence, uncomplicated; F17.210 Nicotine dependence, cigarettes, uncomplicated; F41.9 Anxiety disorder, unspecified; F43.10 Post-traumatic stress disorder, unspecified; Z21 Asymptomatic human immunodeficiency virus [HIV] infection status; E78.5 Hyperlipidemia, unspecified
CPT/HCPCS: 36415; 71046-TC-FY; 80053; 82962; 85027; 86780; C9803; U0003; U0005

== ENCOUNTER 2022-08-15 18:45 | Inpatient (IN) | payer OTHER ==
[2022-08-15 22:58] VITALS: BMI 26.4
[2022-08-16] MEDS ORDERED: NALOXONE HCL (KLOXXADO) 8 MG SPRAY NS PRN (00:28)
[2022-08-16] MEDS ORDERED: MAGNESIUM HYDROX 2400MG/30ML ORAL SUSPENSION 30 ML CUP PO PRN (00:28)
[2022-08-16] MEDS ORDERED: DICYCLOMINE HCL 10 MG CAPSULE PO PRN (00:28)
[2022-08-16] MEDS ORDERED: LOPERAMIDE HCL 2 MG CAPSULE PO PRN (00:28)
[2022-08-16] MEDS ORDERED: POLYETHYLENE GLYCOL (HEALTHYLAX) 3350 17 GM PACKET PO PRN (00:28)
[2022-08-16] MEDS ORDERED: BENZOCAINE/MENTHOL (CHLORASEPTIC ) LOZENGE MM PRN (00:28)
[2022-08-16] MEDS ORDERED: NICOTINE 10 MG CARTRIDGE (INHALER) IH PRN (00:28)
[2022-08-16] MEDS ORDERED: ONDANSETRON *ODT* 4 MG TABLET SL PRN (00:28)
[2022-08-16] MEDS ORDERED: BISMUTH SUBSALICYLATE 524 MG/30 ML PO PRN (00:28)
[2022-08-16] MEDS ORDERED: MAG HYDROX/AL HYDROX/SIMETH 30 ML UNIT-DOSE CUP PO PRN (00:28)
[2022-08-16] MEDS ORDERED: IBUPROFEN 400 MG TABLET (FP) PO PRN (00:28)
[2022-08-16] MEDS ORDERED: ACETAMINOPHEN 325 MG TABLET (FP) PO PRN ×2 (00:28)
[2022-08-16] MEDS ORDERED: cloNIDine HCL 0.1 MG TABLET PO PRN (08:16)
[2022-08-16] MEDS ORDERED: methaDONE HCL 10 MG TABLET (FOR DETOX USE ONLY) PO ONE (09:30)
[2022-08-16] MEDS ORDERED: methaDONE HCL 10 MG TABLET (FOR DETOX USE ONLY) ONE (11:20)
[2022-08-16] MEDS ORDERED: amLODIPine BESYLATE 5 MG TABLET (FP) ONE (11:20)
[2022-08-16] MEDS ORDERED: PRENATAL VITAMINS W/ FOLIC ACID TABLET (FP) PO ONE (11:21)
[2022-08-16] MEDS ORDERED: NICOTINE 14 MG/24 HOURS TOPICAL PATCH TD ONE (11:21)
[2022-08-16] MEDS ORDERED: ACETAMINOPHEN 325 MG TABLET (FP) ONE (11:21)
[2022-08-16] MEDS: PRENATAL VITAMINS W/ FOLIC ACID TABLET (FP) PO SCH (11:26)
[2022-08-16] MEDS: amLODIPine BESYLATE 5 MG TABLET (FP) PO SCH (11:26)
[2022-08-16] MEDS: NICOTINE 14 MG/24 HOURS TOPICAL PATCH TD SCH (11:26)
[2022-08-16] MEDS: METHOCARBAMOL 500 MG TABLET PO PRN (17:53)
[2022-08-16] MEDS: THIAMINE HCL 100 MG TABLET (FP) PO SCH (22:19)
[2022-08-16] MEDS: MELATONIN 5 MG TABLETS PO SCH (22:19)
[2022-08-17] MEDS: PRENATAL VITAMINS W/ FOLIC ACID TABLET (FP) PO SCH (10:32)
[2022-08-17] MEDS: amLODIPine BESYLATE 5 MG TABLET (FP) PO SCH (10:32)
[2022-08-17] MEDS: NICOTINE 14 MG/24 HOURS TOPICAL PATCH TD SCH (10:36)
[2022-08-17 13:46] LABS: HEMATOCRIT 34.5 % (35.4-49); HEMOGLOBIN 11.8 GM/dL (11.7-16.9); MCH 32.2 pg (25.7-33.7); MCHC 34.2 g/dl (32.0-35.9); MEAN PLT VOLUME 9.4 fl (7.5-11.1); PLATELET COUNT 157 10^3/uL (134-434); RBC 3.67 M/mm3 (4.00-5.60); RDW 14.3 % (11.9-15.9)
[2022-08-17 14:48] LABS: ALBUMIN 3.2 g/dl (3.4-5.0); CALCIUM 8.9 mg/dL (8.5-10.1)
[2022-08-17 14:49] LABS: BILIRUBIN,TOTAL 0.4 mg/dL (0.2-1); TOT PROT 6.8 g/dl (6.4-8.2)
[2022-08-17] MEDS: THIAMINE HCL 100 MG TABLET (FP) PO SCH (22:10)
[2022-08-17] MEDS: traZODone HCL 50 MG TABLET (FP) PO SCH (22:10)
[2022-08-17] MEDS: MELATONIN 5 MG TABLETS PO SCH (22:11)
[2022-08-17] MEDS: METHOCARBAMOL 500 MG TABLET PO PRN (22:13)
[2022-08-18] MEDS ORDERED: ALBUTEROL SO4 HFA INHALER IH PRN (07:13)
[2022-08-18] MEDS ORDERED: methaDONE HCL 10 MG TABLET (FOR DETOX USE ONLY) PO ONE (10:00)
[2022-08-18] MEDS: PRENATAL VITAMINS W/ FOLIC ACID TABLET (FP) PO SCH (10:09)
[2022-08-18] MEDS: FAMOTIDINE 20 MG TABLET PO SCH (10:09)
[2022-08-18] MEDS: SERTRALINE HCL 50 MG TABLET (FP) PO SCH (10:09)
[2022-08-18] MEDS: NICOTINE 14 MG/24 HOURS TOPICAL PATCH TD SCH (10:10)
[2022-08-18] MEDS: BICTEGRAV/EMTRICIT/TENOFOV (BIKTARVY) 50-200-25 MG TABLET PO SCH (10:29)
[2022-08-18] MEDS: amLODIPine BESYLATE 2.5 MG TABLET (FP) PO SCH (10:30)
[2022-08-18] MEDS: amLODIPine BESYLATE 5 MG TABLET (FP) PO SCH (10:42)
[2022-08-18] MEDS: traZODone HCL 50 MG TABLET (FP) PO SCH (22:09)
[2022-08-18] MEDS: THIAMINE HCL 100 MG TABLET (FP) PO SCH (22:10)
[2022-08-18] MEDS: MELATONIN 5 MG TABLETS PO SCH (22:10)
[2022-08-18] MEDS: ATORVASTATIN CA 10 MG TABLET (FP) PO SCH (22:10)
[2022-08-19] MEDS: BICTEGRAV/EMTRICIT/TENOFOV (BIKTARVY) 50-200-25 MG TABLET PO SCH (07:24)
[2022-08-19] MEDS: FAMOTIDINE 20 MG TABLET PO SCH (10:11)
[2022-08-19] MEDS: SERTRALINE HCL 50 MG TABLET (FP) PO SCH (10:11)
[2022-08-19] MEDS: PRENATAL VITAMINS W/ FOLIC ACID TABLET (FP) PO SCH (10:11)
[2022-08-19] MEDS: NICOTINE 14 MG/24 HOURS TOPICAL PATCH TD SCH (10:12)
[2022-08-19] MEDS: amLODIPine BESYLATE 2.5 MG TABLET (FP) PO SCH (10:16)
[2022-08-19] MEDS: IBUPROFEN 600 MG TABLET (FP) PO PRN (18:13)
[2022-08-19] MEDS: traZODone HCL 50 MG TABLET (FP) PO SCH (21:32)
[2022-08-19] MEDS: METHOCARBAMOL 500 MG TABLET PO PRN (21:32)
[2022-08-19] MEDS: MELATONIN 5 MG TABLETS PO SCH (21:32)
[2022-08-19] MEDS: ATORVASTATIN CA 10 MG TABLET (FP) PO SCH (21:32)
[2022-08-19] MEDS: THIAMINE HCL 100 MG TABLET (FP) PO SCH (21:33)
[2022-08-20] MEDS: BICTEGRAV/EMTRICIT/TENOFOV (BIKTARVY) 50-200-25 MG TABLET PO SCH (07:47)
[2022-08-20] MEDS ORDERED: methaDONE HCL 10 MG TABLET (FOR DETOX USE ONLY) PO ONE (10:00)
[2022-08-20] MEDS: FAMOTIDINE 20 MG TABLET PO SCH (10:39)
[2022-08-20] MEDS: amLODIPine BESYLATE 2.5 MG TABLET (FP) PO SCH (10:39)
[2022-08-20] MEDS: SERTRALINE HCL 50 MG TABLET (FP) PO SCH (10:39)
[2022-08-20] MEDS: PRENATAL VITAMINS W/ FOLIC ACID TABLET (FP) PO SCH (10:39)
[2022-08-20] MEDS: NICOTINE 14 MG/24 HOURS TOPICAL PATCH TD SCH (10:41)
[2022-08-20] MEDS: IBUPROFEN 600 MG TABLET (FP) PO PRN (19:16)
[2022-08-20 21:10] VITALS: TEMP 97.3
[2022-08-20] MEDS: METHOCARBAMOL 500 MG TABLET PO PRN (21:37)
[2022-08-20] MEDS: MELATONIN 5 MG TABLETS PO SCH (21:37)
[2022-08-20] MEDS: ATORVASTATIN CA 10 MG TABLET (FP) PO SCH (21:37)
[2022-08-20] MEDS: THIAMINE HCL 100 MG TABLET (FP) PO SCH (21:37)
[2022-08-20] MEDS: traZODone HCL 50 MG TABLET (FP) PO SCH (21:38)
[2022-08-21 06:11] VITALS: BP 135/71; PULSE 61; RESP 17
[2022-08-21] MEDS: BICTEGRAV/EMTRICIT/TENOFOV (BIKTARVY) 50-200-25 MG TABLET PO SCH (07:06)
== END 2022-08-21 09:05 | disposition home or self-care (01) | DRG 897 ==
LOC: YASAS 18:45 → Y3N 08-16 13:48
PROVIDERS: ADMIT Allergy & Immunology; ATTEND Surgery
PROC: HZ2ZZZZ Detoxification Services for Substance Abuse Treatment (ICD-10-PCS; principal; 2022-08-16)
DX: F11.23 Opioid dependence with withdrawal (principal); F12.20 Cannabis dependence, uncomplicated; F17.210 Nicotine dependence, cigarettes, uncomplicated; F19.24 Other psychoactive substance dependence with psychoactive substance-induced mood disorder; F39 Unspecified mood [affective] disorder; F32.9 Major depressive disorder, single episode, unspecified; F43.10 Post-traumatic stress disorder, unspecified; Z21 Asymptomatic human immunodeficiency virus [HIV] infection status; E78.5 Hyperlipidemia, unspecified; I10 Essential (primary) hypertension; J45.909 Unspecified asthma, uncomplicated; K21.9 Gastro-esophageal reflux disease without esophagitis; M54.50 Low back pain, unspecified; G89.29 Other chronic pain; R76.11 Nonspecific reaction to tuberculin skin test without active tuberculosis
CPT/HCPCS: 36415; 71046-TC-FY; 80053; 82947; 83036; 84450; 84460; 85027; 86780; C9803-CS; U0003; U0005